=== PATIENT | male | born 1960 ===

== ENCOUNTER 2020-04-06 11:24 | Emergency (ER) | payer SELFPAY ==
--- NOTE | 2020-04-06 12:45 | NUR ---
Called patient name for triage on 3 separate occasions with no answer. Chart given to charge nurse for further action.
== END 2020-04-06 12:48 | disposition left against medical advice (07) ==
LOC: ER 11:25
DX: Z53.21 Procedure and treatment not carried out due to patient leaving prior to being seen by health care provider (principal)

== ENCOUNTER 2020-05-01 17:13 | Emergency (ER) | payer SELFPAY ==
[~2020-05-01] VITALS: Ht 172.7 cm; Wt 72.0 kg
--- NOTE | 2020-05-01 18:02 | NUR ---
awaiting foe ed provider,bilateral wrists handcuffed.Officer Moy at bedside.
[2020-05-01 20:34] VITALS: BP 145/87
== END 2020-05-01 20:39 ==
LOC: MERGE 17:15 → ER 17:15
DX: F12.90 Cannabis use, unspecified, uncomplicated (principal); Z00.00 Encounter for general adult medical examination without abnormal findings
CPT/HCPCS: 74018; 74176; 93005; 99284; 99285